=== PATIENT | male | born 1985 | race Caucasian/White ===

== ENCOUNTER 2017-03-17 10:28 | Emergency (ER) | payer OTHER ==
[~2017-03-17] VITALS: Ht 175.3 cm; Wt 65.9 kg
[2017-03-17 10:38] VITALS: BP 122/82
== END 2017-03-17 11:14 | disposition home or self-care (01) ==
LOC: ED 10:57
DX: K02.9 Dental caries, unspecified (principal)
CPT/HCPCS: 99283